=== PATIENT | female | born 1965 | race Caucasian/White ===

== ENCOUNTER 2018-11-10 15:39 | Emergency (ER) | payer OTHER ==
[~2018-11-10] VITALS: Ht 165.1 cm; Wt 106.6 kg
[~2018-11-10 15:39] MED LIST: ACETAMINOPHEN325 M1 PO; AMITRIPTYLINE H50 MG PO; AMPHETAMINE SAL10 MG; AMPHETAMINE SAL15 MG PO; ATIVAN1 MG PO; BUPROPION HCL100 MG PO; CALCIUM500 M1 PO; CENTRUM COMPLE1 EACH PO; CITALOPRAM HBR20 MG PO; CRANBERRY405 MG PO; CYCLOBENZAPRINE10 MG PO; CYMBALTA60 MG PO; DICLOFENAC SODI75 MG PO; DULOXETINE HCL20 MG PO; EXCEDRIN EXTRA1 EAC1 PO; FLONASE ALLERG9.9 ML NS; FLUTICASONE PRO16 GM NAS; GABAPENTIN300 MG PO; GABAPENTIN400 MG PO; GABAPENTIN600 MG PO; GLUCOPHAGE1000 MG PO; GLUCOSAMINE CH1 EAC1 PO; LIDOCAINE30 G TOP; LISINOPRIL20 MG PO; LORAZEPAM1 MG PO; LOVASTATIN20 MG PO; LYRICA50 MG PO; LYRICA75 MG PO; METFORMIN HCL1000 MG PO; METHOCARBAMOL750 MG PO; NAPROXEN375 MG PO; NASACORT AQ16.5 GM NS; OMEPRAZOLE20 MG PO; ONE DAILY 50 P1 EACH PO; OXYCODONE HCL5 MG PO; PRILOSEC20 MG PO; QVAR7.3 G1 INH; ROBAXIN500 MG PO; SIMVASTATIN10 MG PO; STRATTERA100 MG PO; TOPROL XL25 MG PO; TRAMADOL HCL50 MG PO; TYLENOL EXTRA500 MG PO; ULTRAM50 MG PO; VENTOLIN HFA18 GM INH; VYVANSE30 MG PO; VYVANSE40 MG PO; ZESTRIL20 MG PO; ZOLOFT50 MG PO
[2018-11-10] MEDS ORDERED: LYRICA100 MG PO (15:57)
[2018-11-10] MEDS ORDERED: GABAPENTIN600 MG PO (15:57)
[2018-11-10] MEDS ORDERED: METHYLPREDNISOLO4 M1 PO (16:15)
== END 2018-11-10 16:26 | disposition home or self-care (01) ==
LOC: ED 15:39
DX: M79.622 Pain in left upper arm (principal); E11.9 Type 2 diabetes mellitus without complications; F32.9 Major depressive disorder, single episode, unspecified; F41.9 Anxiety disorder, unspecified; F90.0 Attention-deficit hyperactivity disorder, predominantly inattentive type; K21.9 Gastro-esophageal reflux disease without esophagitis; E78.00 Pure hypercholesterolemia, unspecified; F17.200 Nicotine dependence, unspecified, uncomplicated; Z88.5 Allergy status to narcotic agent; Z88.8 Allergy status to other drugs, medicaments and biological substances; Z91.09 Other allergy status, other than to drugs and biological substances; Z79.899 Other long term (current) drug therapy; Z79.84 Long term (current) use of oral hypoglycemic drugs
CPT/HCPCS: 99283

== ENCOUNTER 2023-03-30 11:36 | Emergency (ER) | payer OTHER ==
[~2023-03-30] VITALS: Ht 165.1 cm; Wt 99.8 kg
[~2023-03-30 11:36] MED LIST changes: +LYRICA100 MG PO; +METHYLPREDNISOLO4 M1 PO
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
[2023-03-30] MEDS ORDERED: BUPRENORPHINE1 EAC4 TD (12:36)
[2023-03-30 14:38] VITALS: BP 105/78
--- NOTE | 2023-03-31 12:29 | EKG ---
[facility] [address] [place], [place] [address] Signed Normal sinus rhythm Normal ECG No previous ECGs available Confirmed by TIERNEY ALVARADO MD ([id number]) on 03/31/2023 12:29:35 PM Electronically Signed By: TIERNEY ALVARADO MD 03/31/23 1229 PATIENT NAME: KADEEM BELL Electrocardiogram DATE OF : 65 PHYSICIAN: TIERNEY ALVARADO MD REPORT #: [id number] REPORT IS CONFIDENTIAL AND NOT TO BE RELEASED WITHOUT AUTHORIZATION
== END 2023-03-30 14:38 | disposition home or self-care (01) ==
LOC: ED 11:36
DX: R47.81 Slurred speech (principal); F19.90 Other psychoactive substance use, unspecified, uncomplicated; E11.9 Type 2 diabetes mellitus without complications; M19.90 Unspecified osteoarthritis, unspecified site; K21.9 Gastro-esophageal reflux disease without esophagitis; F17.200 Nicotine dependence, unspecified, uncomplicated; Z88.5 Allergy status to narcotic agent; Z88.8 Allergy status to other drugs, medicaments and biological substances; Z79.899 Other long term (current) drug therapy; Z79.52 Long term (current) use of systemic steroids; Z79.84 Long term (current) use of oral hypoglycemic drugs
CPT/HCPCS: 36415; 70450; 70496; 70498; 70551; 71045; 80053; 84484; 85025; 85610; 85730; 93005; 93010; 99285-25; J7030; Q9967

== ENCOUNTER 2023-10-03 15:57 | Emergency (ER) | payer OTHER ==
[~2023-10-03] VITALS: Ht 165.1 cm; Wt 92.2 kg
[~2023-10-03 15:57] MED LIST changes: +BUPRENORPHINE1 EAC4 TD; +PREDNISONE20 MG PO
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
[2023-10-03 16:59] LABS: INFLUENZA B NAA NEGATIVE (NEGATIVE); RESPIRATORY SYNCYTIAL VIR NAA NEGATIVE (NEGATIVE)
[2023-10-03 18:00] LABS: HEMATOCRIT 38.3 % (35.0-50.0); HEMOGLOBIN 12.5 g/dL (12.0-18.0); MCH 28.2 (27-36); MCHC 32.6 g/dl (30-36); MCV 86.7 fl (81-99); PLATELET COUNT 364 K/uL (140-440); RBC 4.42 M/ul (4.3-5.7); RDW 14.9 (10.5-15.0)
[2023-10-03 18:19] LABS: ALBUMIN 3.1 g/dL (3.4-5.0); ALBUMIN/GLOBULIN RATIO 0.86 (1.1-2.4); BILIRUBIN, TOTAL 0.2 ng/dL (0.2-1.0); BUN/CREATININE RATIO 9.09 (6.0-28.6); CALCIUM 9.1 mg/dL (8.5-10.1); CREATININE, SERUM 0.77 mg/dL (0.55-1.02); PROTEIN, TOTAL 6.7 g/dL (6.4-8.2)
[2023-10-03 18:21] LABS: EOSINOPHILS, MANUAL DIFF 3; LYMPHOCYTES, MANUAL DIFF 36; MONOCYTES, MANUAL DIFF 9; NEUTROPHILS, MANUAL DIFF 52
[2023-10-03 20:31] LABS: BILIRUBIN, URINE NEGATIVE (negative); BLOOD/HGB, URINE NEGATIVE (Negative); KETONE, URINE TRACE (Negative); LEUK ESTERASE, URINE NEGATIVE (negative); NITRITE, URINE NEGATIVE (negative); PH, URINE 5.5 (5-7)
[2023-10-03] MEDS ORDERED: ELIQUIS5 MG PO (22:04)
[2023-10-03 22:31] VITALS: BP 154/91
--- NOTE | 2023-10-04 14:41 | EKG ---
[facility] [address] [place], [place] [address] Signed Sinus tachycardia Otherwise normal ECG When compared with ECG of 30-MAR-2023 12:43, No significant change was found Confirmed by POONAM CHAN MD ([id number]) on 10/04/2023 2:41:03 PM Electronically Signed By: POONAM CHAN 10/04/23 1441 PATIENT NAME: KADEEM BELL Electrocardiogram DATE OF : 65 PHYSICIAN: POONAM CHAN REPORT #: [id number] REPORT IS CONFIDENTIAL AND NOT TO BE RELEASED WITHOUT AUTHORIZATION
== END 2023-10-03 22:31 | disposition home or self-care (01) ==
LOC: ED 15:57
PROVIDERS: Emergency Medicine
DX: I26.99 Other pulmonary embolism without acute cor pulmonale (principal); R47.81 Slurred speech; Z11.52 Encounter for screening for COVID-19; E11.9 Type 2 diabetes mellitus without complications; E78.00 Pure hypercholesterolemia, unspecified; I10 Essential (primary) hypertension; F17.200 Nicotine dependence, unspecified, uncomplicated; Z88.5 Allergy status to narcotic agent; Z88.8 Allergy status to other drugs, medicaments and biological substances; Z79.51 Long term (current) use of inhaled steroids; Z79.84 Long term (current) use of oral hypoglycemic drugs; Z79.899 Other long term (current) drug therapy
CPT/HCPCS: 36415; 70450; 70496; 70498; 71045; 71260; 80053; 81003; 83880; 84484; 85025; 85379; 87502; 93005; 93010; C9803; J3010; J7121; Q9967; U0002

== ENCOUNTER 2023-10-06 10:07 | Emergency (ER) | payer OTHER ==
[~2023-10-06] VITALS: Ht 165.1 cm; Wt 92.1 kg
[~2023-10-06 10:07] MED LIST changes: +ELIQUIS5 MG PO
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
[2023-10-06 10:45] LABS: BASOPHILS 1.2 % (0-2); EOSINOPHILS 2.6 % (0-6); HEMATOCRIT 35.7 % (35.0-50.0); HEMOGLOBIN 11.4 g/dL (12.0-18.0); LYMPHOCYTES 19.8 % (24-44); MCV 87.4 fl (81-99); MONOCYTES 5.8 % (0-12); NEUTROPHILS 70.6 % (39-80); PLATELET COUNT 334 K/uL (140-440); RBC 4.09 M/ul (4.3-5.7); RDW 14.9 (10.5-15.0)
[2023-10-06 10:54] LABS: ANION GAP 9.8 (7-21); BUN/CREATININE RATIO 15.73 (6.0-28.6); CALCIUM 8.4 mg/dL (8.5-10.1); CREATININE, SERUM 0.89 mg/dL (0.55-1.02); POTASSIUM 3.8 mmol/L (3.5-5.1)
[2023-10-06 11:29] LABS: BILIRUBIN, URINE NEGATIVE (negative); BLOOD/HGB, URINE NEGATIVE (Negative); KETONE, URINE NEGATIVE (Negative); LEUK ESTERASE, URINE NEGATIVE (negative); NITRITE, URINE NEGATIVE (negative); PH, URINE 5.5 (5-7)
[2023-10-06 11:44] LABS: AMPHETAMINES, URINE NEGATIVE (NEGATIVE); BARBITURATES, URINE NEGATIVE (NEGATIVE); BENZODIAZEPINE, URINE NEGATIVE (NEGATIVE); BUPRENORPHINE, URINE POSITIVE (NEGATIVE); CANNABINOID, URINE NEGATIVE (NEGATIVE); COCAINE, URINE NEGATIVE (NEGATIVE); ECSTASY, URINE NEGATIVE (NEGATIVE); FENTANYL, URINE POSITIVE (NEGATIVE); METHADONE, URINE NEGATIVE (NEGATIVE); OPIATES, URINE NEGATIVE (NEGATIVE); OXYCODONE, URINE NEGATIVE (NEGATIVE); PHENCYCLIDINE, URINE NEGATIVE (NEGATIVE)
[2023-10-06 12:59] VITALS: BP 133/99
== END 2023-10-06 12:50 | disposition home or self-care (01) ==
LOC: ED 10:07
PROVIDERS: Emergency Medicine
DX: M25.512 Pain in left shoulder (principal); R41.82 Altered mental status, unspecified; F17.210 Nicotine dependence, cigarettes, uncomplicated; E11.9 Type 2 diabetes mellitus without complications; F84.0 Autistic disorder; E78.00 Pure hypercholesterolemia, unspecified; I10 Essential (primary) hypertension; Z88.5 Allergy status to narcotic agent; Z88.8 Allergy status to other drugs, medicaments and biological substances; Z91.09 Other allergy status, other than to drugs and biological substances; Z79.84 Long term (current) use of oral hypoglycemic drugs; Z79.899 Other long term (current) drug therapy; Z79.51 Long term (current) use of inhaled steroids
CPT/HCPCS: 36415; 70450; 73030; 80048; 80307; 81003; 85025; 99284-25; A9270

== ENCOUNTER 2024-05-05 16:40 | Emergency (ER) | payer OTHER ==
[~2024-05-05] VITALS: Ht 165.1 cm; Wt 79.6 kg
--- OUTSIDE RECORDS SUMMARY | 2024-05-05 16:41 | XMS ---
PreManage Notification: KADEEM BELL Security Lawn Care Worker Events 1 event(s) in the past 18 months Most recent security events: Elopement at [facility] 05/20/2023 12:35 - Patient eloped with IV in place. - Patient eloped before treatment completed. - Patient with suicidal and/or homicidal ideations eloped. Details: Patient LWBS. CRITERIA MET - Group Notification - PDMP CARE PROVIDERS [facility] Volunteer Coordinator/Journeyman Carpenter 01/30/2024-Current PHONE: [phone] Juany Moreno Community Health Worker 03/27/2020-Current PHONE: [phone] MACARIO SOUZA [facility] 07/17/2016-Current PHONE: Unknown -, [facility] Dentist: Gear Changer Current [place] PHONE: [phone] -, [place]- Dentist: Gear Changer Current [facility] PHONE: [phone] -[place]- Dentist: Gear Changer Current [facility] PHONE: [phone] [facility]: [facility] ([facility]) PHONE: [phone] Care Guidelines exist for the following facilities: [facility] ( 04/27/2019 ) Araceli VISIT COUNT (12 MO.) 7 JOSE C Beatty [facility] TOTAL 8 NOTE: Visits indicate total known visits. ED/UCC VISIT TRACKING (12 MO.) 05/05/2024 16:41 [facility] [place] TYPE: Emergency COMPLAINT: - INTENTIONAL OD 03/26/2024 16:12 [facility] [place] TYPE: Emergency DIAGNOSES: - Acute bronchitis due to other specified organisms - Human metapneumovirus as the cause of diseases classified elsewhere - AMS 10/20/2023 12:56 [facility] [place] TYPE: Emergency COMPLAINT: - DIFFICULT BREATHING DIAGNOSES: - Allergy status to narcotic agent - Allergy status to other drugs, medicaments and biological substances - Autistic disorder - Contact with and (suspected) exposure to COVID-19 - Essential (primary) hypertension - Fibromyalgia - Gastro-esophageal reflux disease without esophagitis - alf (current) use of anticoagulants - terminal superintendent (current) use of oral hypoglycemic drugs - Migraine, unspecified, not intractable, without status migrainosus - Nicotine dependence, unspecified, uncomplicated - Other allergy status, other than to drugs and biological substances - Other long distance operator (current) drug therapy - Other pulmonary embolism without acute cor pulmonale - Pure hypercholesterolemia, unspecified - Shortness of breath - Type 2 diabetes mellitus without complications - Unspecified asthma, uncomplicated - Unspecified osteoarthritis, unspecified site 10/06/2023 10:07 [facility] [place] TYPE: Emergency COMPLAINT: - AMS DIAGNOSES: - Allergy status to narcotic agent - Allergy status to other drugs, medicaments and biological substances - Altered mental status, unspecified - Autistic disorder - Essential (primary) hypertension - alf (current) use of inhaled steroids - alf (current) use of oral hypoglycemic drugs - Nicotine dependence, cigarettes, uncomplicated - Other allergy status, other than to drugs and biological substances - Other halfway (current) drug therapy - Pain in left shoulder - Pure hypercholesterolemia, unspecified - Type 2 diabetes mellitus without complications 10/03/2023 15:57 [facility] [place] TYPE: Emergency COMPLAINT: - COLD SYMPTOMS DIAGNOSES: - Allergy status to narcotic agent - Allergy status to other drugs, medicaments and biological substances - Cough, unspecified - Encounter for screening for COVID-19 - Essential (primary) hypertension - alf (current) use of inhaled steroids - alf (current) use of oral hypoglycemic drugs - Nicotine dependence, unspecified, uncomplicated - Other long distance operator (current) drug therapy - Other pulmonary embolism [...] disease, or unspecified chronic kidney disease - terminal superintendent (current) use of oral hypoglycemic drugs - terminal superintendent (current) use of systemic steroids - Nicotine dependence, unspecified, uncomplicated - Other cervical disc disorders, high cervical region - Other long distance operator (current) drug therapy - Other nonmedicinal substance [...] reflux disease without esophagitis - Hypomagnesemia - alf (current) use of oral hypoglycemic drugs - Nicotine dependence, unspecified, uncomplicated - Other halfway (current) drug therapy - Other nonmedicinal substance allergy status - Spinal stenosis, cervical region - Type 2 diabetes mellitus without complications 05/20/2023 12:35 [facility] [place] TYPE: Emergency COMPLAINT: - ABD PAIN, VOMITING INPATIENT VISIT TRACKING (12 MO.) No inpatient visits to display in this time frame [id number]
[2024-05-05] MEDS ORDERED: CHARCOAL 25 GM/120 ML BTL PO ONE (17:15)
[2024-05-05] MEDS ORDERED: SODIUM CHLORIDE 0.9% 1,000 ML IV PRN (17:45)
[2024-05-05 17:54] LABS: BASOPHILS 0.8 % (0-2); EOSINOPHILS 0.8 % (0-6); HEMATOCRIT 33.3 % (35.0-50.0); HEMOGLOBIN 10.7 g/dL (12.0-18.0); LYMPHOCYTES 21.8 % (24-44); MCH 25.4 (27-36); MCHC 32.2 g/dl (30-36); NEUTROPHILS 68.6 % (39-80); PLATELET COUNT 367 K/uL (140-440); RBC 4.21 M/ul (4.3-5.7); RDW 17.4 (10.5-15.0)
[2024-05-05 18:17] LABS: ACETAMINOPHEN 10 ug/mL (10-30); ALBUMIN 3.1 g/dL (3.4-5.0); ALBUMIN/GLOBULIN RATIO 1.07 (1.1-2.4); ALCOHOL, MEDICAL <3 ng/dL (<3); ALKALINE PHOSPHATASE 143 U/L (46-116); ALT (SGPT) 18 U/L (14-59); AST (SGOT) 7 U/L (15-37); BILIRUBIN, TOTAL 0.2 ng/dL (0.2-1.0); BUN/CREATININE RATIO 16.23 (6.0-28.6); CALCIUM 8.2 mg/dL (8.5-10.1); CARBON DIOXIDE 27 mmol/L (21-32); CHLORIDE 104 mmol/L (98-107); CREATININE, SERUM 1.17 mg/dL (0.55-1.02); GLOMERULAR FILTRATION RATE,EST 54 mL/min (>60); SALICYLATE 1.2 mg/dL (2.8-20.0); TSH, 3RD GENERATION 1.052 uIU/mL (0.358-3.740); UREA NITROGEN 19 mg/dL (7-18)
[2024-05-05 20:18] LABS: ACETAMINOPHEN LAST DOSE // 1930
[2024-05-05 20:37] LABS: ACETAMINOPHEN 10 ug/mL (10-30)
[2024-05-05 21:05] LABS: BILIRUBIN, URINE NEGATIVE (negative); BLOOD/HGB, URINE NEGATIVE (Negative); KETONE, URINE TRACE (Negative); LEUK ESTERASE, URINE NEGATIVE (negative); NITRITE, URINE POSITIVE (negative); PH, URINE 5.5 (5-7)
[2024-05-05 21:15] LABS: BACTERIA, URINE 2+ /hpf (negative); CASTS, URINE NONE SEEN \\lpf; COLLECTION TYPE, URINE CLEAN CATCH; CRYSTALS, URINE NONE SEEN (0-1+); EPITHELIAL CELLS, URINE SQUAMOUS 1+ /lpf (0-1+); REFLEX CULTURE, URINE Yes (No)
[2024-05-05 21:18] LABS: AMPHETAMINES, URINE NEGATIVE (NEGATIVE); BARBITURATES, URINE NEGATIVE (NEGATIVE); BENZODIAZEPINE, URINE NEGATIVE (NEGATIVE); BUPRENORPHINE, URINE NEGATIVE (NEGATIVE); CANNABINOID, URINE NEGATIVE (NEGATIVE); COCAINE, URINE NEGATIVE (NEGATIVE); ECSTASY, URINE NEGATIVE (NEGATIVE); FENTANYL, URINE NEGATIVE (NEGATIVE); METHADONE, URINE NEGATIVE (NEGATIVE); OPIATES, URINE NEGATIVE (NEGATIVE); OXYCODONE, URINE NEGATIVE (NEGATIVE); PHENCYCLIDINE, URINE NEGATIVE (NEGATIVE)
[2024-05-05] MEDS ORDERED: IBUPROFEN 800 MG TAB PO ONE (23:15)
[2024-05-06] MEDS ORDERED: buprenorphine HCL 2 MG TAB.SUBL SL ONE (00:15)
[2024-05-06] MEDS ORDERED: NITROFURANTOIN MONOHYD MACROCR 100 MG CAP PO ONE (00:15)
[2024-05-06 00:48] LABS: INFLUENZA B NAA NEGATIVE (NEGATIVE); RESPIRATORY SYNCYTIAL VIR NAA NEGATIVE (NEGATIVE)
[2024-05-06] MEDS ORDERED: ACETAMINOPHEN 325 MG TAB PO PRN (01:00)
[2024-05-06] MEDS ORDERED: buprenorphine HCL 2 MG TAB.SUBL SL PRN (03:45)
[2024-05-06] MEDS ORDERED: diphenhydrAMINE HCL 50 MG CAP PO ONE (04:15)
[2024-05-06] MEDS ORDERED: ASPIRIN 81 MG TABEC PO SCH (08:00)
[2024-05-06] MEDS ORDERED: FLUTICASONE PROPIONATE 50 MCG BTL NAS SCH (09:00)
[2024-05-06] MEDS ORDERED: DOCUSATE SODIUM 100 MG CAP PO SCH (09:00)
[2024-05-06] MEDS ORDERED: PREGABALIN 50 MG CAP PO SCH (09:00)
[2024-05-06] MEDS ORDERED: lisinopriL 10 MG TAB PO SCH (09:00)
[2024-05-06] MEDS ORDERED: LORATADINE 10 MG TAB PO SCH (09:00)
[2024-05-06] MEDS ORDERED: metFORMIN HCL 500 MG TAB PO SCH (09:00)
[2024-05-06 10:35] LABS: BASOPHILS 1.1 % (0-2); EOSINOPHILS 1.8 % (0-6); HEMATOCRIT 32.9 % (35.0-50.0); HEMOGLOBIN 10.4 g/dL (12.0-18.0); LYMPHOCYTES 24.9 % (24-44); MCH 25.1 (27-36); MCHC 31.7 g/dl (30-36); MCV 79.1 fl (81-99); MONOCYTES 7.1 % (0-12); NEUTROPHILS 65.1 % (39-80); PLATELET COUNT 304 K/uL (140-440); RBC 4.15 M/ul (4.3-5.7); RDW 17.5 (10.5-15.0)
[2024-05-06 10:51] LABS: ALBUMIN 2.9 g/dL (3.4-5.0); ALBUMIN/GLOBULIN RATIO 1.07 (1.1-2.4); ANION GAP 10.6 (7-21); BILIRUBIN, TOTAL 0.2 ng/dL (0.2-1.0); BUN/CREATININE RATIO 22.22 (6.0-28.6); CALCIUM 8.6 mg/dL (8.5-10.1); CREATININE, SERUM 0.72 mg/dL (0.55-1.02); POTASSIUM 3.6 mmol/L (3.5-5.1); PROTEIN, TOTAL 5.6 g/dL (6.4-8.2)
[2024-05-06 13:18] LABS: BILIRUBIN, URINE NEGATIVE (negative); BLOOD/HGB, URINE NEGATIVE (Negative); KETONE, URINE NEGATIVE (Negative); LEUK ESTERASE, URINE NEGATIVE (negative); NITRITE, URINE NEGATIVE (negative); PH, URINE 5.5 (5-7)
[2024-05-06] MEDS ORDERED: ATORVASTATIN 10 MG TAB PO SCH ×2 (17:00→21:00)
[2024-05-06] MEDS ORDERED: diphenhydrAMINE HCL 50 MG CAP PO PRN (19:45)
[2024-05-06 20:45] LABS: ALBUMIN 3.5 g/dL (3.4-5.0); ALBUMIN/GLOBULIN RATIO 1.13 (1.1-2.4); ANION GAP 9.4 (7-21); BILIRUBIN, TOTAL 0.2 ng/dL (0.2-1.0); BUN/CREATININE RATIO 21.25 (6.0-28.6); CALCIUM 8.6 mg/dL (8.5-10.1); CREATININE, SERUM 0.8 mg/dL (0.55-1.02); POTASSIUM 4.4 mmol/L (3.5-5.1); PROTEIN, TOTAL 6.6 g/dL (6.4-8.2)
[2024-05-06] MEDS ORDERED: IBUPROFEN 600 MG TAB PO ONE (21:00)
[2024-05-07] MEDS ORDERED: IBUPROFEN 600 MG TAB PO PRN (05:15)
[2024-05-07 05:48] LABS: ALBUMIN 3.3 g/dL (3.4-5.0); ALBUMIN/GLOBULIN RATIO 1.03 (1.1-2.4); ANION GAP 10.3 (7-21); BILIRUBIN, TOTAL 0.3 ng/dL (0.2-1.0); BUN/CREATININE RATIO 19.48 (6.0-28.6); CREATININE, SERUM 0.77 mg/dL (0.55-1.02); POTASSIUM 4.3 mmol/L (3.5-5.1); PROTEIN, TOTAL 6.5 g/dL (6.4-8.2)
[2024-05-07 14:47] VITALS: BP 109/75
--- NOTE | 2024-05-07 16:05 | EKG ---
[facility] [address] [place], [place] [address] Signed Normal sinus rhythm Normal ECG When compared with ECG of 20-OCT-2023 13:15, No significant change was found Confirmed by POONAM CHAN MD ([id number]) on 05/07/2024 4:04:54 PM Electronically Signed By: POONAM CHAN 05/07/24 1605 PATIENT NAME: KADEEM BELL Electrocardiogram DATE OF : 65 PHYSICIAN: POONAM CHAN REPORT #: [id number] REPORT IS CONFIDENTIAL AND NOT TO BE RELEASED WITHOUT AUTHORIZATION
== END 2024-05-07 14:50 ==
LOC: ED 16:40
PROVIDERS: Emergency Medicine; Internal Medicine
DX: T42.8X2A Poisoning by antiparkinsonism drugs and other central muscle-tone depressants, intentional self-harm, initial encounter (principal); G89.29 Other chronic pain; N39.0 Urinary tract infection, site not specified; E11.9 Type 2 diabetes mellitus without complications; F32.A Depression, unspecified; F20.9 Schizophrenia, unspecified; F84.0 Autistic disorder; F17.200 Nicotine dependence, unspecified, uncomplicated; Z88.5 Allergy status to narcotic agent; Z88.8 Allergy status to other drugs, medicaments and biological substances; Z91.048 Other nonmedicinal substance allergy status; Z79.01 Long term (current) use of anticoagulants; Z79.84 Long term (current) use of oral hypoglycemic drugs; Z79.899 Other long term (current) drug therapy
CPT/HCPCS: 36415; 80053; 80307; 81001; 81003; 83036; 84443; 85025; 87077; 87088; 87186; 87502; 93005; 93010; 96360; 96361; 99285; A9270; G0480; J7030; Q0163; U0002

== ENCOUNTER 2024-05-18 10:30 | Emergency (ER) | payer OTHER ==
[2024-05-18] MEDS ORDERED: methocarbamoL 500 MG TABLET PO ONE (11:30)
[2024-05-18] MEDS ORDERED: IBUPROFEN 600 MG TAB PO ONE (11:30)
--- OUTSIDE RECORDS SUMMARY | 2024-05-18 13:00 | XMS ---
PreManage Notification: KADEEM BELL Security Director Workforce Management Events 1 event(s) in the past 18 months Most recent security events: Elopement at [facility] 05/20/2023 12:35 - Patient eloped with IV in place. - Patient eloped before treatment completed. - Patient with suicidal and/or homicidal ideations eloped. Details: Patient LWBS. CRITERIA MET - Group Notification - PDMP - [facility] - 2 Visits in 30 Days CARE PROVIDERS Cheryl Steinberg Bi Tester/Arterial Embalmer 01/30/2024-Current PHONE: [phone] Juany Moreno Community Health Worker 03/27/2020-Current PHONE: [phone] MACARIO SOUZA [facility] 07/17/2016-Current PHONE: Unknown -, [facility] Dentist: Telegraph Installer Current [place] PHONE: [phone] -, [place] Dentist: Telegraph Installer Current [facility] PHONE: [phone] -, [place]- Dentist: Telegraph Installer Current [facility] PHONE: [phone] [facility]/Center: [facility] ([facility]) PHONE: [phone] Care Guidelines exist for the following facilities: [facility] ( 04/27/2019 ) Araceli VISIT COUNT (12 MO.) 8 JOSE C Beatty [employer] [facility] TOTAL 9 NOTE: Visits indicate total known visits. ED/UCC VISIT TRACKING (12 MO.) 05/18/2024 10:30 [facility] [place] TYPE: Emergency COMPLAINT: - BACK PAIN 05/05/2024 16:41 [facility] [place] TYPE: Emergency COMPLAINT: - INTENTIONAL OD DIAGNOSES: - Allergy status to narcotic agent - Allergy status to other drugs, medicaments and biological substances - Autistic disorder - Depression, unspecified - [facility] (current) use of anticoagulants - superintendent container terminal (current) use of oral hypoglycemic drugs - Nicotine dependence, unspecified, uncomplicated - Other chronic pain - Other manager intermediate (current) drug therapy - Other nonmedicinal substance allergy status - Poisoning by antiparkinsonism drugs and other central muscle-tone depressants, intentional self-harm, initial encounter - Schizophrenia, unspecified - Type 2 diabetes mellitus without complications - Urinary tract infection, site not specified 03/26/2024 16:12 [facility] [place] TYPE: Emergency DIAGNOSES: - Acute bronchitis [...] - Gastro-esophageal reflux disease without esophagitis - [facility] (current) use of anticoagulants - superintendent container terminal (current) use of oral hypoglycemic drugs - Migraine, unspecified, not intractable, without status migrainosus - Nicotine dependence, unspecified, uncomplicated - Other allergy status, other than to drugs and biological substances - Other care home (current) drug therapy - Other pulmonary embolism [...] Autistic disorder - Essential (primary) hypertension - [facility] (current) use of inhaled steroids - [facility] (current) use of oral hypoglycemic drugs - Nicotine dependence, cigarettes, uncomplicated - Other allergy status, other than to drugs and biological substances - Other care home (current) drug therapy - Pain in left shoulder - Pure hypercholesterolemia, unspecified - Type 2 diabetes mellitus without complications 10/03/2023 15:57 [facility] [place] TYPE: Emergency COMPLAINT: - COLD SYMPTOMS DIAGNOSES: - Allergy status to narcotic agent - Allergy status to other drugs, medicaments and biological substances - Cough, unspecified - Encounter for screening for COVID-19 - Essential (primary) hypertension - superintendent container terminal (current) use of inhaled steroids - [facility] (current) use of oral hypoglycemic drugs - Nicotine dependence, unspecified, uncomplicated - Other care home (current) drug therapy - Other pulmonary embolism [...] disease, or unspecified chronic kidney disease - [facility] (current) use of oral hypoglycemic drugs - superintendent container terminal (current) use of systemic steroids - Nicotine dependence, unspecified, uncomplicated - Other cervical disc disorders, high cervical region - Other care home (current) drug therapy - Other nonmedicinal substance [...] reflux disease without esophagitis - Hypomagnesemia - superintendent container terminal (current) use of oral hypoglycemic drugs - Nicotine dependence, unspecified, uncomplicated - Other care home (current) drug therapy - Other nonmedicinal substance allergy status - Spinal stenosis, cervical region - Type 2 diabetes mellitus without complications 05/20/2023 12:35 [facility] [place] TYPE: Emergency COMPLAINT: - ABD PAIN, VOMITING INPATIENT VISIT TRACKING (12 MO.) 05/07/2024 18:[address] [facility] DIAGNOSES: - Depression, unspecified - Pain, unspecified - MDD [email or web address]
== END 2024-05-18 11:40 | disposition home or self-care (01) ==
LOC: ED 10:30
DX: M54.50 Low back pain, unspecified (principal)
CPT/HCPCS: 99283

== ENCOUNTER 2024-06-27 09:47 | Emergency (ER) | payer OTHER ==
[~2024-06-27] VITALS: Ht 165.1 cm; Wt 81.9 kg
--- OUTSIDE RECORDS SUMMARY | 2024-06-27 09:54 | XMS ---
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 - Patient eloped before treatment completed. - Patient with suicidal and/or homicidal ideations eloped. Details: Patient LWBS. 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 [facility] TOTAL 8 NOTE: Visits indicate total known visits. ED/UCC VISIT TRACKING (12 MO.) 06/27/2024 09:48 [facility] [place] TYPE: Emergency COMPLAINT: - BACK PAIN 05/18/2024 10:30 [facility] [place] TYPE: Emergency COMPLAINT: - BACK PAIN DIAGNOSES: - Low back pain, unspecified 05/05/2024 16:41 [facility] [place] TYPE: Emergency COMPLAINT: - INTENTIONAL OD DIAGNOSES: - Allergy status to narcotic agent - Allergy status to other drugs, medicaments and biological substances - Autistic disorder - Depression, unspecified - correction (current) use of anticoagulants - correction (current) use of oral hypoglycemic drugs - Nicotine dependence, unspecified, uncomplicated - Other chronic pain - Other prison (current) drug therapy - Other nonmedicinal substance allergy status - Poisoning by antiparkinsonism drugs and other central muscle-tone depressants, intentional self-harm, initial encounter - Schizophrenia, unspecified - Type 2 diabetes mellitus without complications - Urinary tract infection, site not specified 03/26/2024 16:12 [facility] [place] TYPE: Emergency DIAGNOSES: - Acute bronchitis [...] - Gastro-esophageal reflux disease without esophagitis - correction (current) use of anticoagulants - 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 - Migraine, unspecified, not intractable, without status migrainosus - Nicotine dependence, unspecified, uncomplicated - Other allergy status, other than to drugs and biological substances - Other prison (current) drug therapy - Other pulmonary embolism [...] Autistic disorder - Essential (primary) hypertension - 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 - correction (current) use of oral hypoglycemic drugs - Nicotine dependence, cigarettes, uncomplicated - Other allergy status, other than to drugs and biological substances - Other prison (current) drug therapy - Pain in left shoulder - Pure hypercholesterolemia, unspecified - Type 2 diabetes mellitus without complications 10/03/2023 15:57 [facility] [place] TYPE: Emergency COMPLAINT: - COLD SYMPTOMS DIAGNOSES: - Allergy status to narcotic agent - Allergy status to other drugs, medicaments and biological substances - Cough, unspecified - Encounter for screening for COVID-19 - Essential (primary) hypertension - correction (current) use of inhaled steroids - 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 - Nicotine dependence, unspecified, uncomplicated - 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 - Other pulmonary embolism [...] disease, or unspecified chronic kidney disease - correction (current) use of oral hypoglycemic drugs - correction (current) use of systemic steroids - Nicotine dependence, unspecified, uncomplicated - Other cervical disc disorders, high cervical region - 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 [facility] TYPE: [facility]al Health DIAGNOSES: - Depression, unspecified - Pain, unspecified - MDD [email or web address]
[2024-06-27] MEDS ORDERED: FLUOXETINE HCL40 MG PO (09:59)
[2024-06-27] MEDS ORDERED: NAPROXEN 500 MG TAB PO ONE (10:15)
[2024-06-27] MEDS ORDERED: ACETAMINOPHEN 500 MG TAB PO ONE (10:15)
[2024-06-27] MEDS ORDERED: predniSONE 20 MG TAB PO ONE (10:15)
[2024-06-27] MEDS ORDERED: PREDNISONE20 MG PO (10:31)
[2024-06-27] MEDS ORDERED: NAPROSYN500 MG PO (10:31)
[2024-06-27 10:48] VITALS: BP 120/82
== END 2024-06-27 10:50 | disposition home or self-care (01) ==
LOC: ED 09:47
DX: M54.50 Low back pain, unspecified (principal); G89.29 Other chronic pain; E11.9 Type 2 diabetes mellitus without complications; F17.200 Nicotine dependence, unspecified, uncomplicated; Z79.84 Long term (current) use of oral hypoglycemic drugs; Z79.899 Other long term (current) drug therapy
CPT/HCPCS: 99283; A9270; J7512

== ENCOUNTER 2024-07-04 12:32 | Emergency (ER) | payer OTHER ==
[~2024-07-04] VITALS: Ht 165.1 cm; Wt 82.0 kg
[~2024-07-04 12:32] MED LIST changes: +FLUOXETINE HCL40 MG PO; +NAPROSYN500 MG PO
--- OUTSIDE RECORDS SUMMARY | 2024-07-04 12:39 | XMS ---
PreManage Notification: KADEEM BELL Security Addresser Events 1 event(s) in the past 18 months Most recent security events: Elopement at [facility] 05/20/2023 12:35 - Patient eloped with IV in place. - Patient eloped before treatment completed. - Patient with suicidal and/or homicidal ideations eloped. Details: Patient LWBS. 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 [address] Phong Jauregui [facility] TOTAL 9 NOTE: Visits indicate total known visits. ED/UCC VISIT TRACKING (12 MO.) 07/04/2024 12:33 [facility] [place] TYPE: Emergency COMPLAINT: - HEAD PAIN 06/27/2024 09:48 [facility] [place] TYPE: Emergency COMPLAINT: - BACK PAIN DIAGNOSES: - assisted (current) use of oral hypoglycemic drugs - Low back pain, unspecified - Nicotine dependence, unspecified, uncomplicated - Other chronic pain - Other halfway (current) drug therapy - Type 2 diabetes mellitus without complications 05/18/2024 10:30 [facility] [place] TYPE: Emergency COMPLAINT: - BACK PAIN DIAGNOSES: - Low back pain, unspecified 05/05/2024 16:41 [facility] [place] TYPE: Emergency COMPLAINT: - INTENTIONAL OD DIAGNOSES: - Allergy status to narcotic agent - Allergy status to other drugs, medicaments and biological substances - Autistic disorder - Depression, unspecified - 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 [place] TYPE: Emergency DIAGNOSES: - Acute [...] - Gastro-esophageal reflux disease without esophagitis - assisted (current) use of anticoagulants - assisted (current) use of oral hypoglycemic drugs - Migraine, unspecified, not intractable, without status migrainosus - Nicotine dependence, unspecified, uncomplicated - Other allergy status, other than to drugs and biological substances - Other 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 - Other pulmonary embolism [...] Autistic disorder - Essential (primary) hypertension - assisted (current) use of inhaled steroids - 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 - Nicotine dependence, cigarettes, uncomplicated - Other allergy status, other than to drugs and biological substances - Other 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 - Pain in left shoulder - Pure hypercholesterolemia, unspecified - Type 2 diabetes mellitus without complications 10/03/2023 15:57 [facility] [place] TYPE: Emergency COMPLAINT: - COLD SYMPTOMS DIAGNOSES: - Allergy status to narcotic agent - Allergy status to other drugs, medicaments and biological substances - Cough, unspecified - Encounter for screening for COVID-19 - Essential (primary) hypertension - assisted (current) use of inhaled steroids - 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 - Nicotine dependence, unspecified, uncomplicated - Other 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 - Other pulmonary embolism [...] disease, or unspecified chronic kidney disease - assisted (current) use of oral hypoglycemic drugs - assisted (current) use of systemic steroids - Nicotine dependence, unspecified, uncomplicated - Other cervical disc disorders, high cervical region - Other halfway (current) drug therapy - Other nonmedicinal substance allergy status - Other symptoms and signs involving the nervous system - Spinal stenosis, cervical region - Spondylosis without myelopathy or radiculopathy, cervical region - Type 2 diabetes mellitus with diabetic chronic kidney disease - Weakness INPATIENT VISIT TRACKING (12 MO.) 05/07/2024 18:39 [facility] TYPE: [facility] DIAGNOSES: - Depression, unspecified - Pain, unspecified - MDD [email or web address]
[2024-07-04] MEDS ORDERED: methocarbamoL 500 MG TABLET PO ONE (12:45)
[2024-07-04] MEDS ORDERED: NAPROXEN 500 MG TAB PO ONE (12:45)
[2024-07-04 14:56] VITALS: BP 151/97
== END 2024-07-04 14:56 | disposition home or self-care (01) ==
LOC: ED 12:32
DX: T14.8XXA Other injury of unspecified body region, initial encounter (principal); E11.9 Type 2 diabetes mellitus without complications; F17.200 Nicotine dependence, unspecified, uncomplicated; Y04.2XXA Assault by strike against or bumped into by another person, initial encounter; Z88.5 Allergy status to narcotic agent; Z88.8 Allergy status to other drugs, medicaments and biological substances; Z91.09 Other allergy status, other than to drugs and biological substances; Z79.84 Long term (current) use of oral hypoglycemic drugs; Z79.899 Other long term (current) drug therapy
CPT/HCPCS: 99284